=== PATIENT | male | born 1995 | race Caucasian/White ===

== ENCOUNTER 2020-05-09 12:15 | Emergency (ER) | payer OTHER ==
[2020-05-09 12:22] VITALS: BP 129/78
--- NOTE | 2020-05-09 12:36 | ED Physician Documentation ---
History of Present Illness - Stated complaint Stated Complaint: SOA/FLU LIKE SYMPTOMS - Chief complaint Chief Complaint: General - Additonal information Additional information: 24-year-old male presents emergency department for evaluation of body aches chills cough and subjective fevers that began about 12 hours ago. He did call the nurse advice line who requested he come to the ER for COVID-19 screening. Vomiting x1 no diarrhea. No recent travel or known sick contacts. He does live alone. No unilateral leg swelling. no hormone use. denies CP, SOA. appears very well overall. he is worried about COVID 19 Review of Systems Constitutional: reports: Fever, Chills, Myalgias, Sweats. denies: Fatigue, Weight Loss Eyes: reports: Reviewed and negative Ears: reports: Reviewed and negative Nose: reports: Rhinorrhea / runny nose, Congestion Throat: reports: Reviewed and negative Cardiac: denies: Chest pain / pressure, Palpitations, Pedal edema, Calf pain Respiratory: denies: Dyspnea, Cough GI: reports: Vomiting. denies: Constipation, Diarrhea, Hematemesis : reports: Reviewed and negative Skin: reports: Reviewed and negative Musculoskeletal: reports: Reviewed and negative Neurologic: reports: Reviewed and negative PD PAST MEDICAL HISTORY - Past Medical History Past Medical History: No Cardiovascular: None Respiratory: None Neuro: None Endocrine/Autoimmune: None GI: None : None HEENT: None Psych: None Musculoskeletal: None Derm: None - Past Surgical History Past Surgical History: No - Present Medications Home Medications: Ambulatory Orders Medication Instructions Recorded Confirmed No Known Home Medications 05/09/20 05/09/20 - Allergies Allergies/Adverse Reactions: Allergies Allergy/AdvReac Type Severity Reaction Status Date / Time No Known Drug Allergies Allergy Verified 05/09/20 12:19 - Social History Does the pt smoke?: No Smoking Status: Never smoker Does the pt drink ETOH?: No Does the pt have substance abuse?: No - Immunizations Immunizations are current?: Yes PD ED PE NORMAL - General General: Alert and oriented X 3, No acute distress, Well developed/nourished - HEENT HEENT: Atraumatic, PERRL, Ears normal, Moist mucous membranes - Neck Neck: Supple, no meningeal sign, No adenopathy - Cardiac Cardiac: RRR, No murmur - Respiratory Respiratory: No respiratory distress, Clear bilaterally - Abdomen Abdomen: Normal bowel sounds, Soft, Non tender - Back Back: No CVA TTP, No spinal TTP - Derm Derm: Normal color, Warm and dry, No rash - Extremities Extremities: No deformity, No tenderness to palpate, Normal ROM s pain - Neuro Neuro: Alert and oriented X 3, 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 Eye Opening: Spontaneous Motor: Obeys Commands Verbal: Oriented GCS Score: 15 - Psych Psych: Normal mood Results - Vitals Vitals: Vital Signs - 24 hr 05/09/20 12:19 Temperature 37.6 C Heart Rate 105 H Respiratory 18 Rate Blood Pressure 129/78 O2 Saturation 97 Oxygen O2 Source Room air PD MEDICAL DECISION MAKING - ED course Complexity details: reviewed results, re-evaluated patient, considered differential, d/w patient ED course: Well-appearing 24 old male presents emergency department for evaluation of fatigue body aches chills subjective fevers cough congestion most consistent with a flulike or viral illness. Sparing very minor amount of tachycardia vital signs are unremarkable. Clinical exam also unremarkable. COVID-19 screening is pending. Emergent return precautions and conservative care at home as well as quarantine isolation discussed. Departure - Departure Disposition: 01 Home, Self Care Clinical Impression: Flu-like symptoms, Encounter for screening for COVID-19 Condition: Stable Record reviewed to determine appropriate education?: Yes Comments: You have a Covid test pending. You need to self quarantine until the result is done and negative. Do not leave your house. Do not get near anybody. The results should be done in 48 to 72 hours. We will call with a positive result, the fastest way to get a negative result for confirmation though is to go to the hospital website at [email or web address], click on the my [facility] tab and sign up for the patient portal. If any friends or family get sick and would like to have a Covid test done, but do not have signs or symptoms that would necessitate being hospitalized, we encourage testing through our coronavirus swabbing station, call [phone] to schedule an appointment. In general I recommend that you get plenty of fluid and rest. He can take Tylenol or ibuprofen [id number]. Reasons to return to the emergency department would be severe difficulty breathing any fainting episodes chest pain or severe shortness of breath.
== END 2020-05-09 12:54 | disposition home or self-care (01) ==
LOC: ED 12:15
DX: R50.9 Fever, unspecified (principal); R05 Cough; R11.10 Vomiting, unspecified; R53.83 Other fatigue; R09.81 Nasal congestion; Z20.822 Contact with and (suspected) exposure to COVID-19
CPT/HCPCS: 99283